=== PATIENT | female | born 1970 | race Caucasian/White ===

== ENCOUNTER 2021-05-20 18:08 | Emergency (ER) | payer OTHER, MEDICAID ==
[~2021-05-20] VITALS: Ht 154.9 cm; Wt 95.3 kg
[2021-05-20 18:10] VITALS: BP_SYST 187
--- NOTE | 2021-05-20 18:27 | NUR ---
ER Dr. Winter at bedside examining patient.
--- NOTE | 2021-05-20 19:02 | NUR ---
Patient to ER bed 03 to gown for evaluation. Side rails up.
--- NOTE | 2021-05-20 19:05 | NUR ---
Patient brought in by BLS for left knee, foot and ankle pain after fall hitting pavement. pain 2/10. Pain when bearing weight and movement. No other complaints/injuries per patient or as noted. will continue to monitor
--- NOTE | 2021-05-20 19:07 | NUR ---
radiology at bedside for ankle xrays
[2021-05-20] MEDS ORDERED: IBUP-1969 PO (20:08)
[2021-05-20 22:27] VITALS: BP_SYST 142
--- NOTE | 2021-05-20 22:27 | NUR ---
Patient given written and verbal discharge instructions and verbalizes understanding. ER MD discussed with patient the results and treatment provided. Patient in stable condition. ID arm band removed. Rx of Motrin given. Patient educated on pain management and to follow up with PMD. Pain Scale 0/10 Opportunity for questions provided and answered. Medication side effect fact sheet provided.
== END 2021-05-20 22:27 | disposition home or self-care (01) ==
LOC: SED 18:08
DX: S93.402A Sprain of unspecified ligament of left ankle, initial encounter (principal); S80.212A Abrasion, left knee, initial encounter; I10 Essential (primary) hypertension; Z79.899 Other long term (current) drug therapy; W18.39XA Other fall on same level, initial encounter; Y93.89 Activity, other specified; Y92.89 Other specified places as the place of occurrence of the external cause; Y99.8 Other external cause status
CPT/HCPCS: 73564; 99284